=== PATIENT | female | born 1940 | race Caucasian/White ===

== ENCOUNTER 2017-09-18 11:58 | Inpatient (IN) | payer MEDICARE, BC ==
[~2017-09-18] VITALS: Ht 157.5 cm; Wt 80.0 kg
[~2017-09-18 11:58] MED LIST: BUPIVACAINE/PF 0.25% ONE; HEPARIN 1,000 UNITS/ML, 10ML ONE; LIDOCAINE/PF 1%, 30ML ONE; PAPAVERINE 30 MG/ML, 2ML ONE; PROTAMINE SULFATE 10 MG/ML, 5ML ONE; THROMBIN 20,000 UNIT VIAL TP ONE
[2017-09-18] MEDS ORDERED: LACTATED RINGERS 1,000 ML IV SCH (12:46)
[2017-09-18] MEDS ORDERED: MULT-658 PO (12:52)
[2017-09-18] MEDS ORDERED: ASPI-496 PO (12:52)
[2017-09-18] MEDS ORDERED: SIMV40TA3 PO (12:52)
[2017-09-18] MEDS ORDERED: FISH OIL PO (12:52)
[2017-09-18] MEDS ORDERED: HYDR25TA6 PO (12:52)
[2017-09-18] MEDS ORDERED: LOSA50TA6 PO (12:52)
[2017-09-18] MEDS: PLEASE ENTER HEIGHT AND WEIGHT MC SCH ×2 (13:00→21:00)
[2017-09-18] MEDS ORDERED: LIDOCAINE-MPF 1%, 2ML INFIL ONE (13:00)
[2017-09-18 13:07] VITALS: BP 133/86
[2017-09-18 13:07] LABS: BASOPHILS # (AUTO) 0.05 x10^3/uL (0-0.1); BASOPHILS % (AUTO) 1 % (0-1); EOSINOPHILS # (AUTO) 0.15 x10^3/uL (0-0.4); EOSINOPHILS % (AUTO) 2 % (1-7); LYMPHOCYTES # (AUTO) 3.94 x10^3/uL (1-3.4); LYMPHOCYTES % (AUTO) 43 % (22-44); MD NO; MEAN CORPUSCULAR HEMOGLOBIN 30.2 pg (27.0-34.8); MEAN CORPUSCULAR HGB CONC 33.5 g/dL (32.4-35.8); MEAN CORPUSCULAR VOLUME 90.2 fL (80-100); MEAN PLATELET VOLUME 9.4 fL (7.4-10.4); MONOCYTES # (AUTO) 0.72 x10^3/uL (0.2-0.8); MONOCYTES % (AUTO) 8 % (2-9); NEUTROPHILS # (AUTO) 4.39 x10^3/uL (1.8-6.8); NEUTROPHILS % (AUTO) 47 % (42-75); PLATELET COUNT 264 x10^3/uL (130-400); RED BLOOD COUNT 4.69 x10^6/uL (3.82-5.3); RED CELL DISTRIBUTION WIDTH 14.4 % (9.6-15.2)
[2017-09-18 13:18] LABS: ANION GAP 6 mmol/L (5-15); CALCIUM 9.3 mg/dL (8.5-10.1); CHLORIDE 102 mmol/L (98-107); CREATININE 0.86 mg/dL (0.55-1.02)
[2017-09-18] MEDS ORDERED: FENTANYL PF 250 MCG/5ML ONE (14:44)
[2017-09-18] MEDS ORDERED: ROCURONIUM 10MG/ML,5ML ONE (14:45)
[2017-09-18] MEDS ORDERED: PROPOFOL 10 MG/ML, 20ML ONE (14:45)
[2017-09-18] MEDS ORDERED: CEFAZOLIN 1,000 MG ONE ×2 (14:46)
[2017-09-18] MEDS ORDERED: WATER-INJECTION,STERILE 10 ML IV ONE ×2 (14:46→16:49)
[2017-09-18] MEDS ORDERED: GLYCOPYRROLATE 0.4 MG/2 ML, 2ML ONE (14:46)
[2017-09-18] MEDS ORDERED: NEOSTIGMINE 1 MG/ML, 10ML ONE (14:46)
[2017-09-18] MEDS ORDERED: DEXAMETHASONE 4 MG/ML, 1ML ONE ×2 (14:48)
[2017-09-18] MEDS ORDERED: hydrALAzine 20 MG/ML, 1ML IV PRN ×2 (16:00→22:00)
[2017-09-18] MEDS ORDERED: OXYcodone 5 MG/5 ML ORAL.SOL UDC PO PRN (16:00)
[2017-09-18] MEDS ORDERED: FENTANYL PF 100 MCG/2ML IV PRN (16:00)
[2017-09-18] MEDS ORDERED: PROMETHAZINE 25 MG/ML, 1ML IV PRN (16:00)
[2017-09-18] MEDS ORDERED: LABETALOL 5MG/ML, 20ML IV PRN (16:00)
[2017-09-18] MEDS ORDERED: PROMETHAZINE 12.5 MG SUPP PR PRN (16:00)
[2017-09-18] MEDS ORDERED: HYDROmorphone 1 MG/ML, 1ML IV PRN (16:00)
[2017-09-18] MEDS ORDERED: MEPERIDINE/PF 25MG/0.5ML IVPush PRN (16:00)
[2017-09-18] MEDS ORDERED: MORPHINE SULFATE 4 MG/ML, 1ML IVPush PRN (16:00)
[2017-09-18] MEDS ORDERED: PROMETHAZINE 25 MG SUPP PR PRN (16:00)
[2017-09-18] MEDS ORDERED: ONDANSETRON ODT 8 MG PO PRN (16:00)
[2017-09-18] MEDS ORDERED: PHENYLEPHRINE 10 MG/ML ONE (16:03)
[2017-09-18] MEDS ORDERED: ONDANSETRON 2MG/ML, 2ML ONE (16:25)
[2017-09-18] MEDS ORDERED: VANCOMYCIN 1,000 MG ONE (16:29)
[2017-09-18] MEDS ORDERED: HEPARIN 1,000 UNITS/ML, 10ML IV ONE (16:46)
[2017-09-18] MEDS ORDERED: BUPIVACAINE/PF-EPI 0.25% 1:200K IM ONE (16:46)
[2017-09-18] MEDS ORDERED: EPHEDRINE 50 MG/ML, 1ML ONE (16:49)
[2017-09-18] MEDS ORDERED: LABETALOL 5MG/ML, 20ML ONE ×2 (17:32→18:14)
[2017-09-18] MEDS ORDERED: hydrALAzine 20 MG/ML, 1ML ONE (18:41)
[2017-09-18] MEDS ORDERED: ONDANSETRON ODT 8 MG ONE (19:16)
[2017-09-18] MEDS ORDERED: FENTANYL PF 100 MCG/2ML ONE (19:18)
[2017-09-18] MEDS ORDERED: PROMETHAZINE 25 MG/ML, 1ML ONE (19:43)
[2017-09-18] MEDS ORDERED: MORPHINE SULFATE 4 MG/ML, 1ML IV PRN (22:00)
[2017-09-18] MEDS ORDERED: ONDANSETRON 2MG/ML, 2ML IV PRN (22:00)
[2017-09-18] MEDS ORDERED: LABETALOL 5MG/ML, 20ML IVPush PRN (22:00)
[2017-09-18] MEDS ORDERED: HYDROcodone/APAP 5/325 TABLET PO PRN (22:00)
[2017-09-18] MEDS: LACTATED RINGERS 1,000 ML IV SCH (22:00)
[2017-09-19 00:10] VITALS: BP 108/69
[2017-09-19] MEDS: CEFAZOLIN PMX 2GM/50ML 50 ML IVPB SCH ×2 (01:09→08:51)
[2017-09-19] MEDS: ACETAMINOPHEN 325 MG TABLET PO PRN ×4 (01:23→14:58)
[2017-09-19 04:06] VITALS: BP 106/61
[2017-09-19 07:52] VITALS: BP 102/59
[2017-09-19] MEDS: LACTATED RINGERS 1,000 ML IV SCH (08:51)
[2017-09-19] MEDS ORDERED: ASPIRIN 325 MG TABLET EC PO SCH (09:00)
[2017-09-19] MEDS ORDERED: HYDROCHLOROTHIAZIDE 25 MG TABLET PO SCH (09:00)
[2017-09-19] MEDS ORDERED: SODIUM CHLORIDE FLUSH 10ML SYR IVF SCH (09:00)
[2017-09-19] MEDS ORDERED: LOSARTAN 50MG TABLET PO SCH (09:00)
[2017-09-19 12:23] VITALS: BP 106/63
[2017-09-19] MEDS ORDERED: SIMVASTATIN 40 MG TABLET PO SCH (21:00)
== END 2017-09-19 17:16 | disposition home or self-care (01) | DRG 38 ==
LOC: ORIP 11:58 → 4NOR 21:14
PROVIDERS: ADMIT Surgery; ATTEND Surgery
PROC: 03CL0ZZ Extirpation of Matter from Left Internal Carotid Artery, Open Approach (ICD-10-PCS; 2017-09-18)
PROC: 03UJ0JZ Supplement Left Common Carotid Artery with Synthetic Substitute, Open Approach (ICD-10-PCS; 2017-09-18)
PROC: 03UL0JZ Supplement Left Internal Carotid Artery with Synthetic Substitute, Open Approach (ICD-10-PCS; 2017-09-18)
PROC: 3E06017 Introduction of Other Thrombolytic into Central Artery, Open Approach (ICD-10-PCS; 2017-09-18)
PROC: 03CJ0ZZ Extirpation of Matter from Left Common Carotid Artery, Open Approach (ICD-10-PCS; principal; 2017-09-18 14:45)
DX: I65.22 Occlusion and stenosis of left carotid artery (principal); E87.1 Hypo-osmolality and hyponatremia; E78.5 Hyperlipidemia, unspecified; I10 Essential (primary) hypertension; Z86.14 Personal history of Methicillin resistant Staphylococcus aureus infection
CPT/HCPCS: 36415; 80048; 82962; 85025; 86850; 86900; 93005; C1729; J0690; J1100; J1644; J2405; J2550; J2704; J2710; J2720; J3010; J3370; J3490; Q0162; C1768; J0360; J2370; J2440; J7120